=== PATIENT | male | born 1960 | race Asian ===

== ENCOUNTER 2019-10-10 18:50 | Emergency (ER) | payer OTHER ==
[~2019-10-10] VITALS: Ht 172.7 cm; Wt 131.5 kg
[~2019-10-10 18:50] MED LIST: COZAAR25 MG; OXYC1TAB9 PO
[2019-10-11] MEDS ORDERED: ZYNCOF 20-400120 ML PO (07:15)
[2019-10-11] MEDS ORDERED: MOBIC15 MG PO (07:15)
== END 2019-10-11 07:28 | disposition home or self-care (01) ==
LOC: ER 18:50
DX: K43.9 Ventral hernia without obstruction or gangrene (principal); R10.84 Generalized abdominal pain

== ENCOUNTER 2021-05-03 18:09 | Emergency (ER) | payer OTHER ==
[~2021-05-03] VITALS: Ht 165.1 cm; Wt 181.4 kg
[~2021-05-03 18:09] MED LIST changes: +MOBIC15 MG PO; +ZYNCOF 20-400120 ML PO
[2021-05-03] MEDS ORDERED: TRAMADOL HCL50 MG PO (20:58)
== END 2021-05-03 21:04 | disposition home or self-care (01) ==
LOC: ER 18:09
DX: M54.5 Low back pain (principal)

== ENCOUNTER 2022-07-21 14:35 | Outpatient (CLI) | payer OTHER ==
[~2022-07-21 14:35] MED LIST changes: +TRAMADOL HCL50 MG PO
== END 2022-07-21 14:45 | disposition home or self-care (01) ==
LOC: PPH VACUNA 14:35
PROVIDERS: ATTEND Emergency Medicine Pediatric Emergency Medicine
DX: Z23 Encounter for immunization (principal)